=== PATIENT | female | born 1990 | race African-American/Black ===

== ENCOUNTER 2020-01-09 14:52 | Emergency (ER) | payer MEDICAID ==
[~2020-01-09] VITALS: Ht 175.3 cm; Wt 86.2 kg
[2020-01-09 15:14] VITALS: BP 117/69
--- NOTE | 2020-01-09 15:15 | NUR ---
ED Nurse Note:pt. c/o penial discharge
[2020-01-09] MEDS ORDERED: Lidocaine 1% MPF 10mg/ml 5ml INJ ONE (15:45)
[2020-01-09] MEDS ORDERED: Bicillin LA 2.4MMU/4ML SYR IM ONE (15:45)
[2020-01-09] MEDS ORDERED: Azithromycin 250mg tab ORAL ONE (15:45)
--- NOTE | 2020-01-09 16:14 | Emergency Room Report ---
History of Present Illness General Chief Complaint: Male Urogenital Problems Source: Patient Present Illness HPI 29-year-old 1-year-old with no significant past medical history here complaining of 1 week of yellow penile discharge after being sexually active unprotected. Denies any dysuria, scrotal pain or swelling. Denies any penile lesions. Reports that he did not use condom and does not know if partner is positive for any sexually transmitted diseases. Patient is interested in getting treated for chlamydia, gonorrhea, syphilis. Medication for symptom relief Allergies: Coded Allergies: No Known Allergies (Unverified , 01/09/20) COVID-19 Screening Contact w/high risk pt: No Experienced COVID-19 symptoms?: No COVID-19 Testing performed [employer]ODUCTION PROFESSIONAL: No Patient History Past Medical History: see triage record Past Surgical History: none Pertinent Family History: none Now: No Immunizations: UTD Reviewed Nursing Documentation: PMH: Agreed; PSxH: Agreed Nursing Documentation-PMH Past Medical History: No Stated History Review of Systems All Other Systems: negative except mentioned in HPI Physical Exam Vital Signs Date Time Temp Pulse Resp B/P (MAP) Pulse Ox O2 Delivery O2 Flow Rate FiO2 01/09/20 15:03 97.9 102 16 117/69 (85) 100 Room Air Sp02 EP Interpretation: reviewed, normal General Appearance: no apparent distress, alert, GCS 15, non-toxic Head: normocephalic, atraumatic Eyes: bilateral eye normal inspection, bilateral eye PERRL ENT: hearing grossly normal, normal pharynx, no angioedema, normal voice Neck: full range of motion, supple/symm/no masses Respiratory: chest non-tender, lungs clear, normal breath sounds, no rhonchi, no respiratory distress, no retraction, speaking full sentences Cardiovascular #1: regular rate, rhythm, no edema Gastrointestinal: normal bowel sounds, non tender, soft, non-distended, no guarding, no rebound Genitourinary: no CVA tenderness Musculoskeletal: back normal Neurologic: alert, oriented Psychiatric: judgement/insight normal, memory normal, mood/affect normal, no suicidal/homicidal ideation Skin: no rash Lymphatic: no adenopathy Medical Decision Making PA Attestation All my diagnosis and treatment plans were reviewed ad discussed with my supervising physician Dr. Roland Diagnostic Impression: Primary Impression: Possible exposure to STD ER Course 29-year-old 1-year-old with no significant past medical history here complaining of 1 week of yellow penile discharge after being sexually active unprotected. Denies any dysuria, scrotal pain or swelling. Denies any penile lesions. Reports that he did not use condom and does not know if partner is positive for any sexually transmitted diseases. Patient is interested in getting treated for chlamydia, gonorrhea, syphilis. Medication for symptom relief Ddx considered but are not limited to: UTI, chlamydia, Gonorrhea, syphilis, HIV, herpes 1 or 2 Vital signs: are WNL, pt. is afebrile H&PE are most consistent with : Possible exposure to STD ORDERS: At this time no urine specimen needed patient denies any dysuria, patient is aware that we do not routinely test for sexually transmitted diseases but is interested in places to get tested, ED INTERVENTIONS: Rocephin, azithromycin, penicillin G DISCHARGE: At this time pt. is stable for d/c to home. Will provide printed patient care instructions, and any necessary prescriptions. Care plan and follow up instructions have been discussed with the patient prior to discharge. Advised patient to use condom, go to STD clinic for further evaluation and testing, importance of to return to the emergency Last Vital Signs Date Time Temp Pulse Resp B/P (MAP) Pulse Ox O2 Delivery O2 Flow Rate FiO2 01/09/20 15:14 97.9 16 117/69 100 Room Air 01/09/20 15:03 102 Disposition: HOME, SELF-CARE Condition: Stable Patient Instructions: Chlamydia, Male, Gonorrhea, Syphilis Additional Instructions: Take medication as directed, follow-up with your primary care provider, if wors ening symptoms return to the emergency room Enrico Cobian Jan 09, 2020 16:14
[2020-01-09] MEDS ORDERED: Azithromycin 250mg tab ONE (16:22)
[2020-01-09 16:35] VITALS: BP 117/69
--- NOTE | 2020-01-09 16:35 | NUR ---
ED Nurse Note: Pt cleared by health care Provider for discharge. DC instructions was given and explained to pt and verbalized understanding of teachings. All medical deviecs such as ID band removed. Pt is AAO x4, ambulatory and left with all personal belongings.
== END 2020-01-09 16:40 | disposition home or self-care (01) ==
LOC: EMR 16:12
DX: Z20.2 Contact with and (suspected) exposure to infections with a predominantly sexual mode of transmission (principal)
CPT/HCPCS: 96372; 96374; J0696; Q0144; Z7502; 99284